=== PATIENT | female | born 1960 | race Caucasian/White ===

== ENCOUNTER 2017-01-15 17:29 | Emergency (ER) | payer OTHER ==
[~2017-01-15] VITALS: Ht 167.6 cm; Wt 108.0 kg
[2017-01-15] MEDS ORDERED: GABAPENTIN100 MG PO (17:52)
[2017-01-15] MEDS ORDERED: FLOVENT HFA12 GM INH (17:52)
[2017-01-15] MEDS ORDERED: NEFAZODONE HCL150 MG PO (17:53)
[2017-01-15] MEDS ORDERED: PRAMIPEXOLE D0.25 MG PO (17:53)
[2017-01-15] MEDS ORDERED: ELMIRON100 MG PO (17:54)
[2017-01-15] MEDS ORDERED: PAROXETINE HCL20 MG PO (17:54)
--- NOTE | 2017-01-16 07:00 | EKG ---
[facility] [address] [facility] [place] [address] Signed Normal sinus rhythm Prolonged QT Abnormal ECG No previous ECGs available Confirmed by BALDO SCHULZ MD ([id number]) on 01/16/2017 7:00:29 AM Electronically Signed By: BALDO SCHULZ MD 01/16/17 0700 PATIENT NAME: RAMIN PACK RASHAD Electrocardiogram DATE OF : 60 PHYSICIAN: BALDO SCHULZ MD REPORT #: [id number] REPORT IS CONFIDENTIAL AND NOT TO BE RELEASED WITHOUT AUTHORIZATION
== END 2017-01-15 20:51 | disposition home or self-care (01) ==
LOC: ED 17:29
DX: R11.10 Vomiting, unspecified (principal); F32.9 Major depressive disorder, single episode, unspecified; F41.9 Anxiety disorder, unspecified; K21.9 Gastro-esophageal reflux disease without esophagitis; J45.909 Unspecified asthma, uncomplicated; Z87.891 Personal history of nicotine dependence; Z90.710 Acquired absence of both cervix and uterus; Z79.899 Other long term (current) drug therapy
CPT/HCPCS: 71020; 80053; 83735; 83880; 84484; 85025; 85379; 93005; 93010; 99284

== ENCOUNTER 2017-05-21 11:21 | Emergency (ER) | payer OTHER ==
[~2017-05-21] VITALS: Ht 167.6 cm; Wt 106.6 kg
[~2017-05-21 11:21] MED LIST: ELMIRON100 MG PO; FLOVENT HFA12 GM INH; GABAPENTIN100 MG PO; NEFAZODONE HCL150 MG PO; PAROXETINE HCL20 MG PO; PRAMIPEXOLE D0.25 MG PO
[2017-05-21] MEDS ORDERED: METHYLPREDNISOLO4 M1 PO (11:40)
[2017-05-21] MEDS ORDERED: AUGMENTIN 875-1 EACH PO (11:40)
== END 2017-05-21 11:50 | disposition home or self-care (01) ==
LOC: ED 11:21
DX: J44.1 Chronic obstructive pulmonary disease with (acute) exacerbation (principal); K21.9 Gastro-esophageal reflux disease without esophagitis; F32.9 Major depressive disorder, single episode, unspecified; F41.9 Anxiety disorder, unspecified; Z87.891 Personal history of nicotine dependence; Z79.899 Other long term (current) drug therapy
CPT/HCPCS: 99283

== ENCOUNTER 2018-04-19 16:48 | Emergency (ER) | payer OTHER ==
[~2018-04-19] VITALS: Ht 167.6 cm; Wt 106.6 kg
[~2018-04-19 16:48] MED LIST changes: +AUGMENTIN 875-1 EACH PO; +METHYLPREDNISOLO4 M1 PO
[2018-04-19] MEDS ORDERED: NEFAZODONE HCL200 MG PO (19:39)
[2018-04-19] MEDS ORDERED: FLUVOXAMINE MA100 MG PO (19:39)
[2018-04-19] MEDS ORDERED: OMEPRAZOLE40 MG PO (19:43)
[2018-04-19] MEDS ORDERED: BETAMETHASONE D15 G2 TOP (19:44)
== END 2018-04-19 22:14 | disposition home or self-care (01) ==
LOC: ED 16:48
DX: R19.7 Diarrhea, unspecified (principal); F32.9 Major depressive disorder, single episode, unspecified; F41.9 Anxiety disorder, unspecified; K21.9 Gastro-esophageal reflux disease without esophagitis; Z79.899 Other long term (current) drug therapy
CPT/HCPCS: 80053; 81001; 84260; 85025; 99284

== ENCOUNTER 2020-05-28 04:42 | Emergency (ER) | payer OTHER ==
[~2020-05-28] VITALS: Ht 165.1 cm; Wt 88.5 kg
[~2020-05-28 04:42] MED LIST changes: +BETAMETHASONE D15 G2 TOP; +BUPROPION XL150 MG PO; +BUPROPION XL300 MG PO; +BUSPIRONE HCL10 MG PO; +CARBONYL IRON45 MG PO; +FLUVOXAMINE MA100 MG PO; +NEFAZODONE HCL200 MG PO; +OMEPRAZOLE40 MG PO; +POTASSIUM99 M1 PO; +VITAMIN D21250 MCG PO
--- OUTSIDE RECORDS SUMMARY | 2020-05-28 04:44 | XMS ---
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 - 2 Visits in 30 Days CARE PROVIDERS There are no care providers on record at this time. Elva has no Care Guidelines for this patient. [place] VISIT COUNT (12 MO.) 2 [facility] TOTAL 2 NOTE: Visits indicate total known visits. 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
[2020-05-28] MEDS ORDERED: BUSPIRONE HCL15 MG PO (04:56)
[2020-05-28] MEDS ORDERED: NAPROXEN500 MG PO (04:56)
--- NOTE | 2020-05-29 09:51 | EKG ---
[facility] [address] [facility] [place], [place] [address] Signed Normal sinus rhythm Nonspecific ST abnormality Abnormal ECG When compared with ECG of 15-JAN-2017 17:44, No significant change was found Confirmed by SARA WATKINS MD ([id number]) on 05/29/2020 9:51:21 AM Electronically Signed By: SARA WATKINS MD 05/29/20 0951 PATIENT NAME: RAMIN PACK Electrocardiogram DATE OF : 60 PHYSICIAN: SARA WATKINS MD REPORT #: [id number] REPORT IS CONFIDENTIAL AND NOT TO BE RELEASED WITHOUT AUTHORIZATION
== END 2020-05-28 06:24 | disposition home or self-care (01) ==
LOC: ED 04:42
DX: R06.00 Dyspnea, unspecified (principal); R07.89 Other chest pain; K21.9 Gastro-esophageal reflux disease without esophagitis; J45.909 Unspecified asthma, uncomplicated; Z88.8 Allergy status to other drugs, medicaments and biological substances; Z88.5 Allergy status to narcotic agent; Z79.899 Other long term (current) drug therapy
CPT/HCPCS: 71046; 80053; 83880; 84484; 85025; 85379; 93005; 93010; 99285-25

== ENCOUNTER 2020-11-05 16:56 | Emergency (ER) | payer OTHER ==
[~2020-11-05] VITALS: Ht 165.1 cm; Wt 88.9 kg
[~2020-11-05 16:56] MED LIST changes: +BUSPIRONE HCL15 MG PO; +NAPROXEN500 MG PO
--- OUTSIDE RECORDS SUMMARY | 2020-11-05 16:58 | XMS ---
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 [place] VISIT COUNT (12 MO.) 3 LULA Humphrey TOTAL 3 NOTE: Visits indicate total known visits. 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
[2020-11-05] MEDS ORDERED: ASPIRIN325 MG PO (17:23)
[2020-11-05] MEDS ORDERED: HYDROCHLOROTH12.5 M1 PO (17:23)
--- NOTE | 2020-11-05 21:12 | EKG ---
[facility] [address] [facility] [place] [address] Signed Normal sinus rhythm with sinus arrhythmia Cannot rule out Anterior infarct , age undetermined Abnormal ECG When compared with ECG of 28-MAY-2020 04:49, No significant change was found Confirmed by BALDO SCHULZ MD ([id number]) on 11/05/2020 9:12:28 PM Electronically Signed By: BALDO SCHULZ MD 11/05/202111 PATIENT NAME: RAMIN PACK RASHAD Electrocardiogram DATE OF : 60 PHYSICIAN: BALDO SCHULZ MD REPORT #: [id number] REPORT IS CONFIDENTIAL AND NOT TO BE RELEASED WITHOUT AUTHORIZATION
== END 2020-11-05 20:02 | disposition home or self-care (01) ==
LOC: ED 16:56
DX: K21.9 Gastro-esophageal reflux disease without esophagitis (principal); J45.909 Unspecified asthma, uncomplicated; Z88.8 Allergy status to other drugs, medicaments and biological substances; Z88.5 Allergy status to narcotic agent; Z79.899 Other long term (current) drug therapy; Z79.82 Long term (current) use of aspirin
CPT/HCPCS: 80053; 83690; 83735; 84484; 85025; 93005; 93010; 99285-25

== ENCOUNTER 2021-02-01 06:00 | Day surgery (SDC) | payer OTHER ==
[~2021-02-01] VITALS: Ht 165.1 cm; Wt 87.0 kg
[~2021-02-01 06:00] MED LIST changes: +ASPIRIN325 MG PO; +HYDROCHLOROTH12.5 M1 PO; +MULTIVITAMIN-Z1 EACH PO
--- NOTE | 2021-02-01 08:14 | NUR ---
02/01/21 0814 Eloisa Pennington 02/01/21 0800 Eloisa Pennington 0751- PT ARRIVES TO PACU AROUSABLE TO STIMULI. RESP EVEN AND UNLABORED. OXYGEN SAT HIGH 90'S TO 100% ON 6L VIA CO2 NC. PT FALLS INSTANTLY BACK TO SLEEP WHEN NOT BEING STIMULATED. 0757- OXYGEN TITRATED DOWN TO 3L VIA CO2 NC. 02/01/21 0803 Eloisa Pennington 0802- PT PASSING FLATUS.
--- NOTE | 2021-02-01 08:43 | OR ---
[facility] [address] [place], [place] [address] Signed DATE OF OPERATION: 02/01/2021 SURGEON: Haseeb Nicole MD PREOPERATIVE DIAGNOSES: 1. Epigastric abdominal pain. 2. Gastroesophageal reflux disease. 3. Bloating. 4. Screening. 5. Diverticulosis. POSTOPERATIVE DIAGNOSES: 1. Mild diffuse gastritis. 2. Possible tiny hiatal hernia. 3. Minimal to moderate sigmoid diverticulosis. 4. Minimal internal hemorrhoids. PROCEDURES: 1. Esophagogastroduodenoscopy with CLOtest and biopsies of the antrum. 2. Colonoscopy biopsy. ESTIMATED BLOOD LOSS: None. INDICATIONS: Ramin is a 60-year-old female asked to see me for both upper and lower endoscopy. She told me the last couple of years have been extremely difficult for her. It has been very stressful. They changed her anxiety medicine because no longer manufactured. That increased her abdominal pain. In fact, they even sent her for heart workup, which was unremarkable. She had been sleeping in a recliner. It made her asthma worse. She went on omeprazole twice a day. She said that has really helped the abdominal pain and bloating. She is aware that the anxiety seems to be driving more this more than anything else. She has also had a screening colonoscopy around 2011. Unfortunately, we did not have that actual report. It sounds like it was unremarkable. There is no family history of colon cancer or polyps. She is known to have diverticulosis. She does not seem to have any current lower GI symptoms. She is also known to have multiple allergies and wakes up early from anesthetics. She actually requested monitored anesthesia care given her history. In the office, I gave her a pamphlet on upper and lower endoscopy. She understands the nature of the two tests. There is risk including, but not limited to gas bloating, crampy abdominal pain, Electronically Signed By: HASEEB NICOLE MD 02/01/21 0843 PATIENT NAME: RAMIN PACK [facility]PER[facility] REPORT DATE OF : 60 REPORT #: [id number] PHYSICIAN: HASEEB NICOLE MD PCP: JEREMIAH CEDEÑO MD REPORT IS CONFIDENTIAL AND NOT TO BE RELEASED WITHOUT AUTHORIZATION [facility] [address] [place] [address] Signed bleeding, perforation requiring surgery, and missed diagnosis. She had expressed understanding and wished to proceed. PROCEDURE NOTE: Ramin was taken into our endoscopy suite and placed in the supine semi-recumbent position. The posterior oropharynx was anesthetized with lidocaine spray. A bite block was utilized for the case. She was given monitored anesthesia care per our nurse printing and stamping supervisor. The adult gastroscope was introduced and advanced quite readily out in the third portion of the duodenum without difficulty. The duodenum and pyloric channel were unremarkable. The stomach showed mild diffuse erythematous changes. We went ahead and took a biopsy out of the antrum for pathologic review as well as CLOtest. Upon retroflexion of scope, she may have just a very tiny hiatal hernia. The scope was withdrawn up through the area of the GE junction, which was compliant without stricture. A little or no disruption to the Z-line. No Valenzuela's mucosa. No distal esophagitis. The middle and upper esophagus were unremarkable. After this, the gas was suctioned out and the gastroscope removed. Ramin tolerated her upper endoscopy quite well. Ramin was rotated into the left lateral decubitus position. She was maintained on monitored anesthesia care per nurse printing and stamping supervisor. A digital rectal exam was performed and this was unremarkable. The adult colonoscope was introduced and advanced under direct visualization of camera. She has a somewhat long redundant colon. We eventually made it into the cecum itself. Her prep was good. We could easily see the appendiceal orifice and the ileocecal valve. The scope was then slowly withdrawn. She does have diverticula in the sigmoid colon. They were few in number, moderate in size and scattered about. The rectum itself was unremarkable. Upon retroflexion of scope, she has just minimal internal hemorrhoid tissue. After this, the gas was suctioned out and colonoscope removed. Ramin tolerated procedure quite well. RECOMMENDATIONS: I will see Ramin back in my office in 7 to 14 days to review her results. She will probably stay on the 10-year rotation for colonoscopies. Haseeb Nicole MD ALB/MODL /[id number] Electronically Signed By: HASEEB NICOLE MD 02/01/21 0843 PATIENT NAME: RAMIN PACK RASHAD OPERATIVE REPORT DATE OF : 60 REPORT #: [id number] PHYSICIAN: HASEEB NICOLE MD PCP: JEREMIAH CEDEÑO MD REPORT IS CONFIDENTIAL AND NOT TO BE RELEASED WITHOUT AUTHORIZATION [facility] [address] [place], [place] [address] Signed cc: MD Jeremiah Dahl Copies: HASEEB NICOLE MD ~ Electronically Signed By: HASEEB NICOLE MD 02/01/21 0843 PATIENT NAME: RAMIN PACK RASHAD OPERATIVE REPORT DATE OF : 60 REPORT #: [id number] PHYSICIAN: HASEEB NICOLE MD PCP: JEREMIAH CEDEÑO MD REPORT IS CONFIDENTIAL AND NOT TO BE RELEASED WITHOUT AUTHORIZATION
--- NOTE | 2021-02-05 15:36 | PATH ---
[facility] [address] [facility] [place] [place] [address] Signed SPECIMEN(S): A ANTRUM/PYLORUS BIOPSY SPECIMEN SOURCE: A. ANTRUM/PYLORUS BIOPSY CLINICAL HISTORY: Epigastric pain, acid reflux, diverticulosis. Post-op: internal hemorrhoids, diverticulosis, gastritis. MICROSCOPIC DESCRIPTION: Histologic sections of all submitted blocks are examined by light microscopy. These findings, together with the gross examination, support the pathologic diagnosis. FINAL PATHOLOGIC DIAGNOSIS: Antrum, biopsies: - Mild to moderate chronic inactive gastritis. - Negative for intestinal metaplasia. - Negative for Helicobacter pylori organisms on immunohistochemical stain. DDF:cml:C2NR GROSS DESCRIPTION: The specimen, labeled "JAMEY, antrum biopsy," is received in formalin and consists of one louis soft tissue fragment that measures 0.3 cm in greatest dimension. The specimen is entirely submitted in cassette (A1). JS (under the direct supervision of a pathologist) The Gross Description was prepared using a voice recognition system. The report was reviewed for accuracy; however, sound-alike word errors, addition and/or deletions may occur. If there is any question about this report, please contact Client Services. ADDITIONAL NOTES: Immunohistochemical and/or in situ hybridization studies were performed on this case with the appropriate positive controls that react as expected. This test was developed and its performance characteristics determined by [employer]. It has not been cleared or approved by the U.S. Food and Drug Administration. The FDA has determined that such clearance or approval is not necessary. This test is used for clinical purposes. It should not be regarded as investigational or for research. [employer] is certified under the Clinical Laboratory Improvement PATIENT NAME: RAMIN PACK PATHOLOGY DATE OF : 60 REPORT #: [id number] PHYSICIAN: MARIZOL PAUL PCP: EBONIE CEDEÑO MD REPORT IS CONFIDENTIAL AND NOT TO BE RELEASED WITHOUT AUTHORIZATION [facility] [address] [place] [address] Signed Amendments of 1988 (CLIA) as qualified to perform high complexity clinical laboratory testing. This assay has not been validated for specimens that have been decalcified. PERFORMING LABORATORY: The technical component was performed by [facility], [address] [place] [id number] (Bridge Leverman: Merly Dillard MD; CLIA# [id number]). [facility], [address] [address] (CLIA# [id number]). Diagnostician: Chad Rider DO Pathologist Electronically Signed 02/05/2021 Copies: ~ PATIENT NAME: RAMIN PACK PATHOLOGY DATE OF : 60 REPORT #: [id number] PHYSICIAN: MARIZOL PATHOLOGY PCP: EBONIE CEDEÑO MD REPORT IS CONFIDENTIAL AND NOT TO BE RELEASED WITHOUT AUTHORIZATION
== END 2021-02-01 08:38 | disposition home or self-care (01) ==
LOC: OPS 06:00 → DS 06:00 → OPS 06:45
PROVIDERS: ATTEND Colon & Rectal Surgery
PROC: 0DB68ZZ Excision of Stomach, Via Natural or Artificial Opening Endoscopic (ICD-10-PCS; principal; 2021-02-01 06:45)
PROC: 0DJD8ZZ Inspection of Lower Intestinal Tract, Via Natural or Artificial Opening Endoscopic (ICD-10-PCS; 2021-02-01 06:45)
DX: Z12.11 Encounter for screening for malignant neoplasm of colon (principal); K29.50 Unspecified chronic gastritis without bleeding; K21.9 Gastro-esophageal reflux disease without esophagitis; K64.8 Other hemorrhoids; K57.30 Diverticulosis of large intestine without perforation or abscess without bleeding; R14.0 Abdominal distension (gaseous); Q43.8 Other specified congenital malformations of intestine; J45.909 Unspecified asthma, uncomplicated; E66.9 Obesity, unspecified; G25.81 Restless legs syndrome; R00.2 Palpitations; F41.9 Anxiety disorder, unspecified; F32.A Depression, unspecified; G47.33 Obstructive sleep apnea (adult) (pediatric); Z88.8 Allergy status to other drugs, medicaments and biological substances; Z88.6 Allergy status to analgesic agent; Z88.5 Allergy status to narcotic agent; Z68.32 Body mass index [BMI] 32.0-32.9, adult
CPT/HCPCS: 83009; 88305; 88342; J2704

== ENCOUNTER 2022-04-04 15:45 | Emergency (ER) | payer MEDICARE, OTHER ==
[~2022-04-04] VITALS: Ht 165.1 cm; Wt 98.8 kg
[2022-04-04] MEDS ORDERED: OMEPRAZOLE20 MG PO (17:17)
[2022-04-04] MEDS ORDERED: VENTOLIN HFA18 GM INH (17:18)
== END 2022-04-04 19:47 | disposition home or self-care (01) ==
LOC: ED 15:45
DX: J06.9 Acute upper respiratory infection, unspecified (principal); F32.A Depression, unspecified; F41.9 Anxiety disorder, unspecified; F42.9 Obsessive-compulsive disorder, unspecified; N30.10 Interstitial cystitis (chronic) without hematuria; G25.81 Restless legs syndrome; K21.9 Gastro-esophageal reflux disease without esophagitis; J45.909 Unspecified asthma, uncomplicated; Z88.8 Allergy status to other drugs, medicaments and biological substances; Z88.5 Allergy status to narcotic agent; Z79.899 Other long term (current) drug therapy
CPT/HCPCS: 99283

== ENCOUNTER 2024-08-07 17:49 | Emergency (ER) | payer MEDICARE, OTHER | END 2024-08-07 19:17 | disposition home or self-care (01) | LOC: ED 17:49 | DX: R06.02 Shortness of breath (principal); J45.909 Unspecified asthma, uncomplicated; Z88.8 Allergy status to other drugs, medicaments and biological substances; Z88.5 Allergy status to narcotic agent; Z79.899 Other long term (current) drug therapy ==